=== PATIENT | male | born 1960 | race Caucasian/White ===

== ENCOUNTER 2019-08-14 20:35 | Emergency (ER) | payer OTHER ==
[~2019-08-14] VITALS: Ht 167.6 cm; Wt 63.0 kg
[~2019-08-14 20:35] MED LIST: CEPH-443 PO; PHEN-537 PO; RTPRO5 IH
[2019-08-14 21:01] VITALS: Ht 167.6 cm; Wt 63.0 kg
[2019-08-14] MEDS ORDERED: CEPHALEXIN 500 MG CAP PO ONE (21:30)
[2019-08-14 22:00] VITALS: BP 144/88; PULSE 83; RESP 18
== END 2019-08-14 22:15 | disposition home or self-care (01) ==
LOC: E/R 20:35
DX: N30.00 Acute cystitis without hematuria (principal)
CPT/HCPCS: 81003; Z7502; Z7610; 99283